=== PATIENT | male | born 1980 | race Caucasian/White ===

== ENCOUNTER 2017-09-10 09:14 | Observation (INO) | payer OTHER ==
[~2017-09-10] VITALS: Ht 165.1 cm; Wt 2.4 kg
[~2017-09-10 09:14] MED LIST: ADDERALL XR 2020 MG PO; ATIVAN1 M1 PO; ATIVAN1 MG PO; ATIVAN2 MG PO; CHLORDIAZEPOXID25 M3 PO; CLONIDINE HCL0.1 MG PO; FOLIC ACID 1 MG PO; FOLIC ACID 1MG (1 MG PO; FOLIC ACID1 M1 PO; GABAPENTIN300 M2 PO; LIBRIUM25 MG PO; MULTIVITAMIN1 TAB PO; NALTREXONE HCL50 M1 PO; NICOTINE PATCH1 EAC3 TOP; ONE DAILY MULT1 EAC2 PO; Senokot S PO; TRAZODONE HCL50 M1 PO; Theragran Vitamins PO; VITAMIN B-1100 MG PO; VITAMIN B1100 MG PO; ZOFRAN4 M2 PO
[2017-09-10 09:51] LABS: ABSOLUTE BASOPHIL COUNT 0.1 /CUMM (0.0-0.2); ABSOLUTE EOSINOPHIL COUNT 0 /CUMM (0.0-0.7); ABSOLUTE GRANULOCYTE CT 4.7 /CUMM (1.4-6.5); ABSOLUTE LYMPH COUNT 1.6 /CUMM (1.2-3.4); ABSOLUTE MONOCYTE COUNT 0.2 /CUMM (0.10-0.60); BASOPHIL % 0.8 % (0.0-2.0); EOSINOPHIL % 0.6 % (0-5); GRANULOCYTE % 70.7 % (42.2-75.2); HEMATOCRIT 45.3 % (42-52); MEAN CORPUSCULAR HGB 30.1 PG (27.0-31.0); MEAN CORPUSCULAR HGB CONC 34.2 G/DL (33.0-37.0); MEAN PLATELET VOLUME 7.1 FL (7.4-10.4); PLATELET COUNT 352 /CUMM (130-400); RBC DISTRIBUTION WIDTH 13.1 % (11.5-14.5); RED BLOOD CELL CT 5.15 /CUMM (4.70-6.10); WHITE BLOOD CELL COUNT 6.6 /CUMM (4.8-10.8)
--- NOTE | 2017-09-10 10:01 | ED GENERAL ADULT ---
History of Present Illness General Chief Complaint: ETOH/Drug Related Complaint Stated Complaint: REQ ETOH DETOX Source: patient Exam Limitations: intoxication Allergies Coded Allergies: NO KNOWN ALLERGIES (12/12/13) Reconcile Medications Folic Acid 1 MG TABLET 1 MG PO DAILY supplement Multivitamin (One Daily Multivitamin) 1 EACH TABLET 1 TAB PO DAILY supplement Naltrexone HCl 50 MG TABLET 1 TAB PO DAILY ALCOHOL USE DISORDER Nicotine (Nicotine Patch) 21 MG/24 HOUR PATCH.TD24 21 MG TOP DAILY smoking cessation Thiamine HCl (Vitamin B-1) 100 MG TABLET 100 MG PO DAILY supplement Trazodone HCl 50 MG TABLET 50 MG PO AT BEDTIME PRN sleep Triage Note: REQUESTING DETOX OFF ALCOHOL. HAS BEEN DRINKING "NON-STOP" X 3 DAYS, LAST DRINK THIS AM ([place]). REPORTS HX OF SEIZURES WHEN HE STOPS DRINKING. DENIES SI OR HI. Triage Nurses Notes Reviewed? yes Onset: Abrupt Duration: day(s): (3), changing over time, continues in ED, getting worse Timing: recent history Injury Environment: home Severity: moderate, severe No Modifying Factors: none HPI: 36-year-old male past medical history of alcohol dependence and alcohol withdrawal seizures presents requesting alcohol detox. Patient states that he has been drinking heavily for greater than 20 years. He states that he will drink in binges. He states that he was clean for several months until 3 days ago when he started drinking again. He states that he usually drinks whiskey or vodka and will drink "the entire bottle". He denies any drug use. No suicidal or homicidal ideation. He does report that he has been hospitalized for alcohol detox in the past. He denies any chest pain, shortness of breath, lower extremity edema, back pain, vomiting or any other symptoms. He does not take any medications. His last drink was before coming in he drank an entire bottle of whiskey. (Rodrigo Guerra) Vital Signs & Intake/Output Vital Signs & Intake/Output Vital Signs Date Time Temp Pulse Resp B/P B/P Pulse O2 O2 Flow FiO2 Mean Ox Delivery Rate 09/11 0005 98.3 76 20 148/84 97 Room Air 09/10 2157 97.6 67 20 129/67 97 Room Air 09/10 1915 98.7 76 20 131/65 96 09/10 1620 97.6 83 18 132/69 99 Room Air 09/10 1428 97.5 88 20 134/79 97 09/10 1210 97.0 67 20 114/57 96 09/10 1119 98 Room Air 09/10 0924 95.0 86 18 139/79 95 Room Air ED Intake and Output 09/11 0000 09/10 1200 Intake Total 480 0 Output Total Balance 480 0 Intake, Oral 480 0 Patient 5 lb 6 oz Weight Weight Reported by Patient Measurement Method (Breanna NAIDU,Niya) Past History Travel History Traveled to [place] past 21 day No Medical History Any Pertinent Medical History? see below for history Neurological: SEIZURES EENT: NONE Cardiovascular: NONE Respiratory: NONE Gastrointestinal: NONE Hepatic: NONE Renal: NONE Musculoskeletal: NONE Psychiatric: alcohol dependence, anxiety Endocrine: NONE Blood Disorders: NONE Cancer(s): NONE History of MRSA: No History of VRE: No History of CDIFF: No Influenza Vaccine: 06/26/17 Surgical History Surgical History: non-contributory Psychosocial History Who do you live with Patient/Self Services at Home None What is your primary language Romanian Tobacco Use: Current Daily Use Daily Tobacco Use Amount/Type: => 5 Cigarettes daily ETOH Use: alcoholic Illicit Drug Use: denies illicit drug use Family History Family History, If Any: MOTHER FH: thyroid cancer Hx Contributory? No (Rodrigo Guerra) Review of Systems Review of Systems Constitutional: Reports: no symptoms. EENTM: Reports: no symptoms. Respiratory: Reports: no symptoms. Cardiovascular: Reports: no symptoms. GI: Reports: no symptoms. Genitourinary: Reports: no symptoms. Musculoskeletal: Reports: no symptoms. Skin: Reports: no symptoms. Neurological/Psychological: Reports: see HPI, anxiety. Hematologic/Endocrine: Reports: no symptoms. Immunologic/Allergic: Reports: no symptoms. All Other Systems: Reviewed and Negative (Rodrigo Guerra) Physical Exam Physical Exam General Appearance: well developed/nourished, no apparent distress, alert, awake , anxious Head: atraumatic, normal appearance Eyes: Bilateral: normal appearance, PERRL, EOMI. Ears, Nose, Throat: normal pharynx, normal ENT inspection, hearing grossly normal Neck: normal inspection, supple, full range of motion Respiratory: normal breath sounds, chest non-tender, no respiratory distress, lungs clear Cardiovascular: regular rate/rhythm, normal peripheral pulses Peripheral Pulses: 2+ radial (R), 2+ radial (L) Gastrointestinal: normal bowel sounds, soft, non-tender, no organomegaly Back: normal inspection, normal range of motion Extremities: normal inspection, normal range of motion, no edema Neurologic/Psych: no motor/sensory deficits, awake, alert, oriented x 3, normal gait Skin: intact, normal color, warm/dry Core Measures ACS in differential dx? No CVA/TIA Diagnosis: No Sepsis Present: No Sepsis Focused Exam Completed? No (Rodrigo Guerra) Progress Differential Diagnoses I considered the following diagnoses in my evaluation of the patient: [Alcohol intoxication, alcohol withdrawal, drug withdrawal, electrolyte abnormality] Initial ED EKG: normal sinus rhythm, no ST T wave changes, LAD, CONSIFER LAFB Hand-Off Endorsed To: Erasto Shannon MD Endorsed Time: 2007 Pending: other (danay) (Rodrigo Guerra) Plan of Care: Orders Procedure Date/time Status Discharge Patient 09/11 0015 Active Regular Diet 09/[address] in observation 09/10 1640 Active ED Holding Orders 09/10 1640 Active Patient Data 09/10 1640 Active Vital Signs 09/10 1640 Active Code Status 09/10 1640 Active CIWA 09/10 1115 Active Intake & Output 09/10 0951 Active URINE DRUG SCREEN FOR ER ONLY 09/10 930 Complete URINALYSIS 09/10 930 Complete MAGNESIUM 09/10 930 Complete ETHANOL 09/10 930 Complete COMPREHENSIVE METABOLIC PANEL 09/10 930 Complete CBC WITHOUT DIFFERENTIAL 09/10 930 Complete EKG 09/10 0828 Active Laboratory Tests 09/10/17 1145: Urine Opiates Screen < 100.00, Methadone Screen < 40, Barbiturate Screen < 60, Ur Phencyclidine Scrn < 6.00, Amphetamines Screen < 100, U Benzodiazepines Scrn < 85, Urine Cocaine Screen < 50, Urine Cannabis Screen < 5.00, Urine Color YEL, Urine Clarity CLEAR, Urine pH 7.0, Ur Specific [place] 1.015, Urine Protein NEG, Urine Ketones NEG, Urine Nitrite NEG, Urine Bilirubin NEG, Urine Urobilinogen 0.2, Ur Leukocyte Esterase NEG, Ur Microscopic EXAM NOT REQUIRED, Urine Hemoglobin NEG, Urine Glucose NEG 09/10/17 0938: Anion Gap 14, Estimated GFR > 60, BUN/Creatinine Ratio 16.3, Glucose 95, Calcium 9.0, Magnesium 1.9, Total Bilirubin 0.3, AST 43, ALT 42, Alkaline Phosphatase 69 , Total Protein 7.4, Albumin 4.6, Globulin 2.8, Albumin/Globulin Ratio 1.6, CBC w Diff NO MAN DIFF REQ, RBC 5.15, MCV 88.0, MCH 30.1, MCHC 34.2, RDW 13.1, MPV 7.1 L, Gran % 70.7, Lymphocytes % 24.3, Monocytes % 3.6, Eosinophils % 0.6, Basophils % 0.8, Absolute Granulocytes 4.7, Absolute Lymphocytes 1.6, Absolute Monocytes 0.2, Absolute Eosinophils 0, Absolute Basophils 0.1, Serum Alcohol 355.0 Patient seen and evaluated. He is requesting alcohol detox. He currently is intoxicated. He is been drinking for the past 3 days and was clean for several months before that. Just a history of withdrawal seizures. We'll check basic labs including magnesium and EKG patient will then be monitored in the emergency department with CIWA exams. Patient has been resting comfortably. His only evidence of withdrawal has been anxiety. Patient will be made ED hours for continued evaluation and monitoring. All blood work is within normal limits. pt signed out to dr shannon pending ciwa exams and reeval. (Rodrigo Guerra) (Niya Carlos MD) Differential Diagnoses I considered the following diagnoses in my evaluation of the patient: Comments: Declines assistance for detox (Erasto Shannon MD) Departure Departure Condition: Stable Clinical Impression Primary Impression: Alcohol intoxication Qualifiers: Complication of substance-induced condition: uncomplicated Qualified Code: F10.920 - Alcohol use, unspecified with intoxication, uncomplicated Referrals: Unknown (PCP/Family) (Rodrigo Guerra) PA/[facility] Co-Sign Statement Statement: ED Attending supervision documentation- [] I saw and evaluated the patient. I have also reviewed all the pertinent lab results and diagnostic results. I agree with the findings and the plan of care as documented in the PA's/[facility] [employer]NER's documentation. [X] I have reviewed the ED Record and agree with the PA's/[facility] [employer]'s documentation. [] Additions or exceptions (if any) to the PAs/[facility] THINNER's note and plan are summarized below: [] (Breanna NAIDU,Niya) Departure Time of Disposition: 18 Disposition: HOME OR SELF CARE Departure Forms: DETOX FACILITIES LIST General Discharge Information PA/[facility] [employer] Co-Sign Statement Statement: ED Attending supervision documentation- x I saw and evaluated the patient. I have also reviewed all the pertinent lab results and diagnostic results. I agree with the findings and the plan of care as documented in the PA's/[facility] [employer]'s documentation. [] I have reviewed the ED Record and agree with the PA's/[facility] THINNER's documentation. [] Additions or exceptions (if any) to the PAs/[facility] THINNER's note and plan are summarized below: [] (Mirtha NAIDU,Erasto) Critical Care Note Critical Care Note Critical Care Time: non-applicable (Rodrigo Guerra) ED Attending Observation Initial Observation Note: I have seen and personally examined TAWANNA ESCAMILLA on 09/10/17 at 1639. I agree with the current emergency department documentation. The disposition (admission or discharge) is uncertain at this time, he needs a period of observation for the following reason(s): [CIWA MONITORING, FOLLOW FOR SOBRIETY, SIGNS OF WITHDRAWAL, UNCLEAR IF PATIENT WILL NEED HOSPITALIZATION, SITTER AT BEDSIDE] The ED Nurse caring for this patient has been personally informed as to what the patient is being observed for. (Breanna NAIDU,Niya) Initial Observation Note: I have seen and personally examined TAWANNA ESCAMILLA on 09/11/17 at 0019. I agree with the current emergency department documentation. The disposition (admission or discharge) is uncertain at this time, he needs a period of observation for the following reason(s): The ED Nurse caring for this patient has been personally informed as to what the patient is being observed for. Observation Re-Evaluation: I have reevaluated TAWANNA ESCAMILLA on 09/11/17 at 0018. The physical findings that support the continued need to observe this patient include . Observation Discharge: I have reevaluated TAWANNA ESCAMILLA on 09/11/17 at 0019. The patient is: (x): Stable for discharge (): To be admitted to Nursing Floor (): To be placed in Observation on Nursing Floor (): For transfer to other facility The patient was being observed for alcohol intoxication As a result of that observation, I have determined safe for discharge. (Mirtha NAIDU,Erasto)
[2017-09-11 00:10] VITALS: BP 148/84
[2017-09-12] MEDS ORDERED: DEXTROAMP-AMPHE10 M1 PO (20:08)
[2017-09-12] MEDS ORDERED: NALTREXONE HCL50 M1 PO (20:08)
[2017-09-12] MEDS ORDERED: TRAZODONE HCL50 M1 PO (20:09)
[2017-09-12] MEDS ORDERED: VITAMIN B-1100 MG PO (20:09)
[2017-09-12] MEDS ORDERED: GABAPENTIN400 M2 PO (20:13)
== END 2017-09-11 00:12 ==
LOC: ERH 09:14 → ERHI 16:45
PROVIDERS: Physician Assistant Medical
DX: F10.229 Alcohol dependence with intoxication, unspecified (principal); R56.9 Unspecified convulsions; F41.9 Anxiety disorder, unspecified; F90.9 Attention-deficit hyperactivity disorder, unspecified type; F32.9 Major depressive disorder, single episode, unspecified; F17.200 Nicotine dependence, unspecified, uncomplicated
CPT/HCPCS: ERO; 80307; 81003; 93005; 93010; G0378; G0480

== ENCOUNTER 2017-09-12 11:51 | Inpatient (IN) | payer OTHER ==
[~2017-09-12] VITALS: Ht 165.1 cm; Wt 72.6 kg
--- NOTE | 2017-09-12 12:54 | ED GENERAL ADULT ---
History of Present Illness General Chief Complaint: ETOH/Drug Related Complaint Stated Complaint: NEEDS DETOX FROM ETOH SEEN WED FOR SAME Source: patient Exam Limitations: no limitations Vital Signs & Intake/Output Vital Signs & Intake/Output Vital Signs Date Time Temp Pulse Resp B/P B/P Pulse O2 O2 Flow FiO2 Mean Ox Delivery Rate 09/12 2039 98.2 93 18 127/71 09/12 2040 98.2 93 18 127/71 98 Room Air 09/12 1805 98.8 88 20 117/65 96 Room Air 09/12 1803 98.8 88 20 117/65 09/12 1609 97.5 97 19 131/71 100 Room Air 09/12 1600 98.2 88 18 115/71 09/12 1343 Room Air Room Air 09/12 1254 96.4 105 20 144/74 99 Room Air Allergies Coded Allergies: NO KNOWN ALLERGIES (12/12/13) Triage Note: REQUESTING DETOX OFF ALCOHOL, SEEN HERE ON 09/10 FOR SAME. STATES HE WENT HOME AND DRANK. [place] THIS AM, DNEIES OTHER Triage Nurses Notes Reviewed? yes Onset: Abrupt Duration: day(s): Timing: recent history HPI: 09/12/17 2 PM 36-year-old male presents emergency department requesting alcohol detox. He says last drink was earlier today. He denies abdominal pain or other complaints. He admits to depression but denies suicidal ideation. He declines any interest speaking with crisis; he wants alcohol detox. He does say he's had withdrawal seizures including one within the last year. (Jose Walker DO) Reconcile Medications Dextroamphetamine/Amphetamine (Dextroamp-Amphet ER 10 MG Cap) 10 MG CAP.ER.24H 1 CAP PO QAM PRN ADD/ADHD (Reported) Gabapentin (Unknown Strength) CAPSULE (Unknown Dose) PO AD MENTAL HEALTH ( Reported) Naltrexone HCl 50 MG TABLET 1 TAB PO DAILY MENTAL HEALTH (Reported) Thiamine HCl (Vitamin B-1) 100 MG TABLET 1 TAB PO DAILY SUPPLEMENT (Reported) Trazodone HCl 50 MG TABLET 1 TAB PO QPM PRN SLEEP (Reported) (Eboni NAIDU,Abad Olivo) Past History Medical History Any Pertinent Medical History? see below for history Neurological: SEIZURES EENT: NONE Cardiovascular: NONE Respiratory: NONE Gastrointestinal: NONE Hepatic: NONE Renal: NONE Musculoskeletal: NONE Psychiatric: alcohol dependence, anxiety Endocrine: NONE Blood Disorders: NONE Cancer(s): NONE History of MRSA: No History of VRE: No History of CDIFF: No Surgical History Surgical History: non-contributory Psychosocial History Who do you live with Patient/Self Services at Home None What is your primary language Eritrean Family History Family History, If Any: MOTHER FH: thyroid cancer Hx Contributory? No (Jose Walker DO) Review of Systems Review of Systems Constitutional: Denies: fever. EENTM: Reports: no symptoms. Respiratory: Reports: no symptoms. Cardiovascular: Reports: no symptoms. GI: Reports: no symptoms. Genitourinary: Reports: no symptoms. Musculoskeletal: Reports: no symptoms. Skin: Reports: no symptoms. Neurological/Psychological: Reports: other (intoxicated). Hematologic/Endocrine: Reports: no symptoms. Immunologic/Allergic: Reports: no symptoms. (Jose Walker DO) Physical Exam Physical Exam General Appearance: alert, awake, anxious Head: atraumatic, normal appearance Eyes: Bilateral: normal appearance, PERRL, EOMI. Ears, Nose, Throat: normal pharynx, normal ENT inspection Neck: normal inspection, supple, full range of motion Respiratory: normal breath sounds, chest non-tender, no respiratory distress Cardiovascular: regular rate/rhythm Peripheral Pulses: 4+ radial (R), 4+ radial (L) Gastrointestinal: soft, non-tender Back: normal range of motion Extremities: normal inspection, normal range of motion Neurologic/Psych: awake, alert, oriented x 3, intoxicated Skin: intact, normal color, warm/dry Core Measures ACS in differential dx? No CVA/TIA Diagnosis: No Sepsis Present: No Sepsis Focused Exam Completed? No (Jose Walker DO) Progress Differential Diagnoses I considered the following diagnoses in my evaluation of the patient: [Alcohol withdrawal, alcohol intoxication] Plan of Care: Orders Procedure Date/time Status Regular Diet 09/13 B Active PHOSPHORUS 09/13 599 Active MAGNESIUM 09/13 599 Active BASIC ELECTROLYTES PLUS BUN&CR 09/13 599 Active URINALYSIS 09/12 2199 Active Pathway - chart 09/12 2104 Active Code Status 09/12 2104 Active Patient Data 09/12 2055 Active Admit to inpatient 09/12 2009 Active CIWA 09/12 140 Active URINE DRUG SCREEN FOR ER ONLY 02/09 1402 Complete ETHANOL 02/09 1402 Complete COMPREHENSIVE METABOLIC PANEL 09/12 1402 Complete CBC WITHOUT DIFFERENTIAL 09/12 1402 Complete CASE MANAGEMENT CONSULT 09/12 1402 Active URINE DRUG SCREEN FOR ER ONLY 09/12 1242 Complete URINALYSIS 09/12 1242 Complete House Staff 09/12 UNK Active VTE Mechanical Prophylaxis 09/12 UNK Active Intake & Output 09/12 UNK Active Activity/Ambulation 09/12 UNK Active EKG 09/12 UNK Active SOCIAL WORK CONSULT 09/12 UNK Active PSYCHIATRIC CONSULT 09/12 UNK Active Current Medications Sig/Tea Start time Last Medication Dose Stop Time Status Admin Folic Acid 1 MG DAILY 09/13 1000 UNVr (Folic Acid) Thiamine HCl 100 MG DAILY 09/13 1000 UNVr (Vitamin B1) Multivitamins 1 TAB DAILY 09/12 2104 UNVr 09/12 (Theragran Vitamins) 211 Lorazepam See Dose Q1P PRN 09/12 2100 UNVr (Ativan) Insts (1) Lorazepam 2 MG Q6H 09/12 2100 UNVr 09/12 (Ativan) 2116 Sodium Chloride 1,000 ML 09/12 1900 CAN (Normal Saline 0.9%) Dose Instructions: (1)Lorazepam (Ativan): See admin criteria Laboratory Tests 09/12/17 1650: Urine Opiates Screen < 100.00, Methadone Screen < 40, Barbiturate Screen < 60, Ur Phencyclidine Scrn < 6.00, Amphetamines Screen < 100, U Benzodiazepines Scrn < 85, Urine Cocaine Screen < 50, Urine Cannabis Screen < 5.00 09/12/17 1539: Anion Gap 17 H, Estimated GFR > 60, BUN/Creatinine Ratio 11.3, Glucose 95, Calcium 9.2, Total Bilirubin 0.3, AST 39, ALT 42, Alkaline Phosphatase 68, Total Protein 7.5, Albumin 4.8, Globulin 2.7, Albumin/Globulin Ratio 1.8, CBC w Diff NO MAN DIFF REQ, RBC 5.72, MCV 88.3, MCH 29.3, MCHC 33.1, RDW 13.4, MPV 7.0 L, Gran % 54.4, Lymphocytes % 37.4, Monocytes % 6.8, Eosinophils % 0.7, Basophils % 0.7, Absolute Granulocytes 2.6, Absolute Lymphocytes 1.8, Absolute Monocytes 0.3 , Absolute Eosinophils 0, Absolute Basophils 0, Serum Alcohol 298.0 09/12/17 1244: Urine Opiates Screen < 100.00, Methadone Screen < 40, Barbiturate Screen < 60, Ur Phencyclidine Scrn < 6.00, Amphetamines Screen 113, U Benzodiazepines Scrn < 85, Urine Cocaine Screen < 50, Urine Cannabis Screen < 5.00, Urine Color YEL, Urine Clarity CLEAR, Urine pH 6.0, Ur Specific [address] 1.020, Urine Protein 30 H, Urine Ketones NEG, Urine Nitrite NEG, Urine Bilirubin NEG, Urine Urobilinogen 0.2, Ur Leukocyte Esterase NEG, Ur Microscopic SEDIMENT EXAMINED, Urine RBC RARE , Urine WBC RARE, Urine Crystals 3+ [place] OX H, Urine Bacteria RARE H, Hyaline Casts 1-3 H, Granular Casts 1-3 H, Urine Mucus MANY H, Urine Hemoglobin NEG, Urine Glucose 250 H Initial ED EKG: none (Jose Walker DO) Initial ED EKG: l anterior fasicular block. nsr (Eboni NAIDU,Abad Olivo) Departure Departure Disposition: STILL A PATIENT Condition: Stable Clinical Impression Primary Impression: Alcohol intoxication Secondary Impressions: Alcohol dependence with withdrawal Referrals: Unknown (PCP/Family) Departure Forms: Customer Survey General Discharge Information Comments 09/12/17 6:40 pm The patient has his CIWA score of 9. His alcohol level was 298. He has a history of alcohol withdrawal seizures within the last year He is pending case management approval for inpatient alcohol detox. The patient was signed out to Dr. Lyn at 7 PM. (Jose Walker DO) Admission Note [facility] Documentation of Exam: Documentation of any treatments & extenuating circumstances including Concerns Regarding Discharge (functional status, medication knowledge or non-compliance, living conditions, etc.) that warrant an admission rather than observation: pt cleared for admission... pt with history of seizures/delerium tremens <1 year ago. merits medical admission for etoh detox. (Eboni NAIDU,Abad Olivo) Critical Care Note Critical Care Note Critical Care Time: 30-74 min (Jose Walker DO)
[2017-09-12 15:44] LABS: ABSOLUTE BASOPHIL COUNT 0 /CUMM (0.0-0.2); ABSOLUTE EOSINOPHIL COUNT 0 /CUMM (0.0-0.7); ABSOLUTE GRANULOCYTE CT 2.6 /CUMM (1.4-6.5); ABSOLUTE LYMPH COUNT 1.8 /CUMM (1.2-3.4); ABSOLUTE MONOCYTE COUNT 0.3 /CUMM (0.10-0.60); BASOPHIL % 0.7 % (0.0-2.0); EOSINOPHIL % 0.7 % (0-5); GRANULOCYTE % 54.4 % (42.2-75.2); MEAN CORPUSCULAR HGB 29.3 PG (27.0-31.0); MEAN CORPUSCULAR HGB CONC 33.1 G/DL (33.0-37.0); MEAN CORPUSCULAR VOLUME 88.3 FL (80.0-94.0); PLATELET COUNT 375 /CUMM (130-400); RBC DISTRIBUTION WIDTH 13.4 % (11.5-14.5); RED BLOOD CELL CT 5.72 /CUMM (4.70-6.10); WHITE BLOOD CELL COUNT 4.8 /CUMM (4.8-10.8)
[2017-09-12 15:50] LABS: HEMATOCRIT 50.5 % (42-52)
[2017-09-12 16:00] VITALS: BP 115/71
[2017-09-12 18:03] VITALS: BP 117/65
[2017-09-12] MEDS ORDERED: NALTREXONE HCL50 M1 PO (20:08)
[2017-09-12] MEDS ORDERED: DEXTROAMP-AMPHE10 M1 PO (20:08)
[2017-09-12] MEDS ORDERED: TRAZODONE HCL50 M1 PO (20:09)
[2017-09-12] MEDS ORDERED: VITAMIN B-1100 MG PO (20:09)
[2017-09-12] MEDS ORDERED: GABAPENTIN400 M2 PO (20:13)
[2017-09-12 20:40] VITALS: BP 127/71
--- NOTE | 2017-09-12 21:11 | History & Physical ---
Charu Spring MD 09/12/172109: General Information and HPI Statement: I have seen and personally examined TAWANNA ESCAMILLA and documented this H&P. The patient is a 36 year old M who presented with a patient stated chief complaint of alcohol intoxication and impending withdrawal Source of Information: patient, family, old records Exam Limitations: no limitations History of Present Illness: 36 year old male with a PMH significant for seizures, alcohol dependence, anxiety, ADHD, current smoker comes to the [facility] ED for alcohol intoxication and impending detox. He was last here two days ago but was treated in the ED and discharged. Today he comes in requesting detox. He is accompanied by his sister who contributes to the history. Apparently the patient has been drivinking daily for 15 days and had been sober before that for several months. He states that he has been drinking one bottle of whiskey a day. The sister claims he has been drinking three bottles of whiskey a day. The patient does admit that between the time of his trip to the ER and today, he drank "three large bottles of whiskey" that he had taken from his neighbor's house. As per the patient and sister, he has a history of seizures related to alcohol withdrawal. Patient denies suicidal or homicidial ideation, hallucinations. According to the ED staff, the patient did not answer if he was suicidal when asked but did admit to being depressed. Patient denies headache, fever, abdominal pain, change in bowel or urinary habits, nausea or vomiting, dizziness. The patient was last admitted to the hospital back in June 2017 for detox and it was noted there that he had a history significant for suicidal ideation. Before that, he was admitted to [facility] with the same complaints. He was tapered on ativan and instructed to follow up with IOP on discharge. However he now states that the provider he spoke with there was not helpful so he did not continue to go there. The patient was placed on trazadone for sleep during his last admission here but has not taken it for "some time". The patient is also on Adderal for ADHD but he reports not taking that either. The only medication he takes is naltrexone 50mg daily. Patient has no surgical history, family history significant for mother with thyroid cancer. He has smoked for 17 years 1PPD. He denies drug use other than marijuana. 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 He is single. Allergies/Medications Allergies: Coded Allergies: NO KNOWN ALLERGIES (12/12/13) Home Med list Dextroamphetamine/Amphetamine (Dextroamp-Amphet ER 10 MG Cap) 10 MG CAP.ER.24H 1 CAP PO QAM PRN ADD/ADHD (Reported) Gabapentin (Unknown Strength) CAPSULE (Unknown Dose) PO AD MENTAL HEALTH ( Reported) Naltrexone HCl 50 MG TABLET 1 TAB PO DAILY MENTAL HEALTH (Reported) Thiamine HCl (Vitamin B-1) 100 MG TABLET 1 TAB PO DAILY SUPPLEMENT (Reported) Trazodone HCl 50 MG TABLET 1 TAB PO QPM PRN SLEEP (Reported) Compliance With Home Meds: POOR Past History Travel History Traveled to [place] past 21 day No Medical History Neurological: SEIZURES EENT: NONE Cardiovascular: NONE Respiratory: NONE Gastrointestinal: NONE Hepatic: NONE Renal: NONE Musculoskeletal: NONE Psychiatric: alcohol dependence, anxiety Endocrine: NONE Blood Disorders: NONE Cancer(s): NONE History of MRSA: No History of VRE: No History of CDIFF: No Surgical History Surgical History: non-contributory Past Family/Social History Family History Relations & Conditions if any MOTHER FH: thyroid cancer Psychosocial History Services at Home: None ETOH Use: alcoholic Review of Systems Review of Systems Constitutional: Reports: no symptoms. EENTM: Reports: no symptoms. Cardiovascular: Reports: no symptoms. Respiratory: Reports: no symptoms. GI: Reports: no symptoms. Genitourinary: Reports: no symptoms. Musculoskeletal: Reports: no symptoms. Skin: Reports: no symptoms. Neurological/Psychological: Reports: tremors. Hematologic/Endocrine: Reports: no symptoms. Immunologic/Allergic: Reports: no symptoms. All Other Systems: Reviewed and Negative Exam & Diagnostic Data Last 24 Hrs of Vital Signs/I&O Vital Signs Date Time Temp Pulse Resp B/P B/P Pulse O2 O2 Flow FiO2 Mean Ox Delivery Rate 09/12 2230 98.7 92 19 132/72 09/12 2229 98.7 92 19 132/72 99 Room Air 09/12 2039 98.2 93 18 127/71 09/12 2039 98.2 93 18 127/71 98 Room Air 09/12 1805 98.8 88 20 117/65 96 Room Air 09/12 1803 98.8 88 20 117/65 09/12 1609 97.5 97 19 131/71 100 Room Air 09/12 1600 98.2 88 18 115/71 02/09 1343 Room Air Room Air 09/12 1254 96.4 105 20 144/74 99 Room Air Intake & Output 09/12 1600 09/12 0800 09/12 0000 Intake Total Output Total Balance Patient 160 lb Weight Weight Reported by Patient Measurement Method Physical Exam General Appearance Alert, Oriented X3, Cooperative, No Acute Distress Skin No Rashes, No Breakdown, No Significant Lesion Skin Temp/Moisture Exam: Warm/Dry Sepsis Skin Exam (color): Normal for Ethnicity HEENT Atraumatic, PERRLA, EOMI, Mucous Membr. moist/pink Cardiovascular Regular Rate, Normal S1, Normal S2, No Murmurs Lungs Clear to Auscultation, Normal Air Movement Abdomen Normal Bowel Sounds, Soft, No Tenderness, No Hepatospenomegaly, No Masses Neurological tremor bilaterally on outstretched hands. Extremities No Clubbing, No Cyanosis, No Edema, Normal Pulses, No Tenderness/ Swelling Last 24 Hrs of Labs/David: Laboratory Tests 09/12/17 1650: Urine Opiates Screen < 100.00, Methadone Screen < 40, Barbiturate Screen < 60, Ur Phencyclidine Scrn < 6.00, Amphetamines Screen < 100, U Benzodiazepines Scrn < 85, Urine Cocaine Screen < 50, Urine Cannabis Screen < 5.00 09/12/17 1539: Anion Gap 17 H, Estimated GFR > 60, BUN/Creatinine Ratio 11.3, Glucose 95, Calcium 9.2, Total Bilirubin 0.3, AST 39, ALT 42, Alkaline Phosphatase 68, Total Protein 7.5, Albumin 4.8, Globulin 2.7, Albumin/Globulin Ratio 1.8, CBC w Diff NO MAN DIFF REQ, RBC 5.72, MCV 88.3, MCH 29.3, MCHC 33.1, RDW 13.4, MPV 7.0 L, Gran % 54.4, Lymphocytes % 37.4, Monocytes % 6.8, Eosinophils % 0.7, Basophils % 0.7, Absolute Granulocytes 2.6, Absolute Lymphocytes 1.8, Absolute Monocytes 0.3 , Absolute Eosinophils 0, Absolute Basophils 0, Serum Alcohol 298.0 09/12/17 1244: Urine Opiates Screen < 100.00, Methadone Screen < 40, Barbiturate Screen < 60, Ur Phencyclidine Scrn < 6.00, Amphetamines Screen 113, U Benzodiazepines Scrn < 85, Urine Cocaine Screen < 50, Urine Cannabis Screen < 5.00, Urine Color YEL, Urine Clarity CLEAR, Urine pH 6.0, Ur Specific [place] 1.020, Urine Protein 30 H, Urine Ketones NEG, Urine Nitrite NEG, Urine Bilirubin NEG, Urine Urobilinogen 0.2, Ur Leukocyte Esterase NEG, Ur Microscopic SEDIMENT EXAMINED, Urine RBC RARE , Urine WBC RARE, Urine Crystals 3+ CA OX H, Urine Bacteria RARE H, Hyaline Casts 1-3 H, Granular Casts 1-3 H, Urine Mucus MANY H, Urine Hemoglobin NEG, Urine Glucose 250 H Assessment/Plan Assessment: 36 year old male with a PMH significant for grand mal seizures secondary to alcohol withdrawal, anxiety, ADHD, current smoker comes to the [facility] ED for alcohol intoxication and impending detox. The patient has been drinking daily for 15 days and had been sober before that for several months. Patient failed IOP treatment as he did not attend. He did attempt alcoholics anonymous for some time. He denies SI, HI, hallucinations. Physical exam is positive for bounding pulses and tremor. Vitals showed tachycardia. His CIWA score in the ED is 10 for anxiety, tremors, nausea. Alcohol level found to be 298. Utox is negative for all other drugs of abuse. Vital signs are normal. Patient was given (3) 2 mg doses of ativan and (1) 1 mg dose in the ED for symptoms and signs of withdrawal. Plan #alcohol withdrawal Patient is placed on ativan per ciwa protocol and standing dose of 2mg q6h Folate Thiamine 100mg Multivitamin Psychiatry consult Social work for disposition planning: [place] vs [facility] Detox. Continue naltrexone 50mg daily Check phos and mag levels in addition to K and replete as needed #smoking cessation counseled patient nicotine patch 14mg Full code ALPS Regular diet As Ranked By This Provider Problem List: 1. Alcohol dependence with withdrawal 2. Anxiety 3. Depression Core Measures/Misc (04/20) Acute Coronary Syndrome ACS Diagnosis: No Congestive Heart Failure Congestive Heart Failure Diagnosis No Cerebrovascular Accident CVA/TIA Diagnosis: No VTE (View Protocol) VTE Risk Factors Smoker No Mechanical VTE Prophylaxis d/t N/A MechProphylax Ordered No VTE Pharm Prophylaxis d/t NA PharmProphylax ordered Sepsis (View protocol) Sepsis Present: No Saba Díaz MD 09/12/17 2153: Resident Review Statement Resident Statement: examined this patient, discussed with internal combustion engine subassembler, agreed with internal combustion engine subassembler, discussed with family, reviewed EMR data (avail), discussed with nursing , discussed with case mgmt, reviewed images, amended to note Other Findings: Patient is a 36 YO M with PMH significant of Alcohol abuse, with h/o multiple detox attempts, alcohol related grand mal seizure once last yr and history of suicidal ideation, last admission was in june 2017 presented to [facility] requesting detoxification. He was discharged recently to [facility] but didnt attend due to inconvinient hours. Attending Alcohol annonymous and remained sober. Started drinking around 15 days ago with whiskey around reportedly 1L per day. Today he drank on 2-3 bottles and requested detox after calling his sister. Vitals at admissions did show tachycardia. Labs are unremarkable. CIWA scores around 10 for anxiety, tremors, nausea. Admit to general medicine floor Alcohol detox CIWA protocol. folate/thiamine/multivitamin. Psych and social work consult. Fall and seizure precautions fall and seizure precautions smoking cessation nicotin patch Home meds Patient currently takes only - Naltrexone 50mg daily. Previously ON and not taking - Aderral, Trazodone, gabapentine. Discharge follow up Family requested 1. [facility] [phone]. 2. [facility] (NO ADDITIONAL DETAILS ABOUT THIS FACILITY) DVT prophylaxis SC lovenox code status full code Cipriano NAIDU, [facility] 09/13/17 0611: Attending MD Review Statement Attending Statement Attending MD Statement: examined this patient, discuss w/resident/PA/TREATMENT COORDINATOR, agreed w/resident/PA/TREATMENT COORDINATOR, reviewed images, amended to note Attending Assessment/Plan: 36 yo M smoker, with h/o anxiety/ depression, ADHD, alcohol dependence, alcohol withdrawal seizure, last detox (Jun 2017) at [facility] after which patient followed up with [facility] and [facility]. He was sober until 2 weeks back when he started to drink again, binges on whiskey. Last seizure was 1 year ago. No SI or HI. He denies nausea, vomiting, abdominal pain, or diarrhea. No melena, hematemesis or BRBPR. Vitals stable, Examination unremarkable. Labs: bicarb 31, AG 17, LFTs normal. UA neg. Utox neg. Alcohol 298. EKG: sinus rhythm, LAFB, no acute changes. Assessment and plan: 1. Alcohol withdrawal 2. History of alcohol withdrawal seizure 3. Anxiety/ depression 4. Smoker - Admit to general medicine - Fall and seizure precautions - CIWA protocol, IV ativan per CIWA - PO ativan 2 mg Q6 - Banana bag x 1 - Psych and social work consult - Smoking cessation counseling, nicotine patch - Resume trazodone for insomnia - Discuss with Psych about resuming Adderall DVT ppx Lovenox. Full code.
[2017-09-12 22:31] VITALS: BP 132/72
[2017-09-13 00:11] VITALS: BP 134/82
--- NOTE | 2017-09-13 06:11 | Admission Certification ---
Admission Certification Certification Statement - As attending physician, I certify that at the time of - admission, based on clinical presentation, severity of - symptoms, need for further diagnostic testing and - therapeutic interventions, and risk of adverse outcomes - without in-hospital treatment, in my clinical assessment, - this patient requires an acute hospital stay for a minimum - of two nights or longer. I have also considered psychsocial - factors such as support system, advanced age, financial - issues, cognitive issues, and failed out-patient treatments, - past re-admission history, safety of patient, and lack of - compliance as applicable. Specific rationale supporting this admission is: Alcohol withdrawal.
[2017-09-13 06:21] VITALS: BP 132/64
--- NOTE | 2017-09-13 08:22 | PN- Housestaff ---
See Addendum Subjective Follow-up For: Alcohol detoxification Subjective: He is comfortably lying in the bed. Able to communicate. Reports he is feeling better compared to yesterday. Denies any overnight issues. Review of Systems Constitutional: Reports: see HPI (a). Comments: ROS negative accept above Objective Last 24 Hrs of Vital Signs/I&O Vital Signs Date Time Temp Pulse Resp B/P B/P Pulse O2 O2 Flow FiO2 Mean Ox Delivery Rate 09/13 0621 98.4 68 18 132/64 96 Room Air 09/13 0011 98.9 86 18 134/82 95 Room Air 09/12 2231 98.7 92 19 132/72 09/12 2230 98.7 92 19 132/72 99 Room Air 09/12 2040 98.2 93 18 127/71 09/12 2040 98.2 93 18 127/71 98 Room Air 09/12 1805 98.8 88 20 117/65 96 Room Air 09/12 1803 98.8 88 20 117/65 09/12 1609 97.5 97 19 131/71 100 Room Air 09/12 1600 98.2 88 18 115/71 09/12 1343 Room Air Room Air 09/12 1254 96.4 105 20 144/74 99 Room Air Intake & Output 09/13 1600 09/13 0800 09/13 0000 Intake Total 120 240 Output Total 1 Balance 120 239 Intake, IV 20 Intake, Oral 100 240 Output, Urine 1 Patient 72.575 kg Weight Weight Reported by Patient Measurement Method Physical Exam General Appearance: Alert, Oriented X3, Cooperative, No Acute Distress Skin: No Rashes, No Breakdown HEENT: Atraumatic, PERRLA, EOMI Neck: Supple, No JVD Cardiovascular: Normal S1, Normal S2, No Murmurs Lungs: Clear to Auscultation, Normal Air Movement Abdomen: Normal Bowel Sounds, Soft, No Tenderness Neurological: Normal Gait, Normal Speech, Strength at 5/5 X4 Ext, Normal Tone, Sensation Intact Extremities: No Clubbing, No Cyanosis, No Edema Current Medications: Current Medications Sig/Tea Start time Last Medication Dose Route Stop Time Status Admin Folic Acid 1 MG DAILY 09/13 1000 AC 09/13 PO 0933 Influenza Virus 0.5 ML ONCE ONE 09/13 114 DC 09/13 Vaccine IM 09/13 115 0937 Lorazepam 2 MG Q6H 09/13 1200 AC PO Lorazepam 0 .STK-MED ONE 09/12 2114 DC PO Lorazepam See Dose Q1P PRN 09/12 2100 AC 09/13 Insts (1) IV 0006 Lorazepam 2 MG Q6H 09/12 2100 DC 09/13 PO 0641 Lorazepam 0 .STK-MED ONE 09/12 1915 DC .ROUTE Lorazepam 0 .STK-MED ONE 09/12 1914 DC PO Lorazepam 2 MG ONCE ONE 09/120 DC 09/12 PO 09/12 190 191 Lorazepam 2 MG STAT STA 09/12 1848 DC 09/12 IV 09/12 Multivitamins 0 .STK-MED ONE 09/12 2115 DC PO Multivitamins 1 TAB DAILY 09/12 210 AC 09/13 PO 0933 Nicotine 14 MG DAILY 09/13 1000 AC 09/12 TOP 2312 Nicotine 0 .STK-MED ONE 09/12 2314 DC TOP Sodium Chloride 1,000 ML BOLUS ONE 09/12 194 DC 09/12 IV 09/12 2043 1940 Sodium Chloride 1,000 ML 09/12 1899 CAN IV Thiamine HCl 100 MG DAILY 09/13 1000 AC 09/13 PO 0933 Dose Instructions: (1)Lorazepam: See admin criteria Last 24 Hrs of Lab/David Results Last 24 Hrs of Labs/Mics: Laboratory Tests 09/13/17 0755: Anion Gap 9, Estimated GFR > 60, BUN/Creatinine Ratio 18.6, Phosphorus 3.1, Magnesium 1.4 L 09/12/17 1650: Urine Opiates Screen < 100.00, Methadone Screen < 40, Barbiturate Screen < 60, Ur Phencyclidine Scrn < 6.00, Amphetamines Screen < 100, U Benzodiazepines Scrn < 85, Urine Cocaine Screen < 50, Urine Cannabis Screen < 5.00 09/12/17 1539: Anion Gap 17 H, Estimated GFR > 60, BUN/Creatinine Ratio 11.3, Glucose 95, Calcium 9.2, Total Bilirubin 0.3, AST 39, ALT 42, Alkaline Phosphatase 68, Total Protein 7.5, Albumin 4.8, Globulin 2.7, Albumin/Globulin Ratio 1.8, CBC w Diff NO MAN DIFF REQ, RBC 5.72, MCV 88.3, MCH 29.3, MCHC 33.1, RDW 13.4, MPV 7.0 L, Gran % 54.4, Lymphocytes % 37.4, Monocytes % 6.8, Eosinophils % 0.7, Basophils % 0.7, Absolute Granulocytes 2.6, Absolute Lymphocytes 1.8, Absolute Monocytes 0.3 , Absolute Eosinophils 0, Absolute Basophils 0, Hepatitis A IgM Ab NONREACTIVE, Hep Bs Antigen NONREACTIVE, Hep B Core IgM Ab Conf NONREACTIVE, Hepatitis C Antibody NONREACTIVE, Serum Alcohol 298.0 09/12/17 1244: Urine Opiates Screen < 100.00, Methadone Screen < 40, Barbiturate Screen < 60, Ur Phencyclidine Scrn < 6.00, Amphetamines Screen 113, U Benzodiazepines Scrn < 85, Urine Cocaine Screen < 50, Urine Cannabis Screen < 5.00, Urine Color YEL, Urine Clarity CLEAR, Urine pH 6.0, Ur Specific [place] 1.020, Urine Protein 30 H, Urine Ketones NEG, Urine Nitrite NEG, Urine Bilirubin NEG, Urine Urobilinogen 0.2, Ur Leukocyte Esterase NEG, Ur Microscopic SEDIMENT EXAMINED, Urine RBC RARE , Urine WBC RARE, Urine Crystals 3+ CA OX H, Urine Bacteria RARE H, Hyaline Casts 1-3 H, Granular Casts 1-3 H, Urine Mucus MANY H, Urine Hemoglobin NEG, Urine Glucose 250 H Assessment/Plan Assessment: Patient is a 36 YO M with PMH significant of Alcohol abuse, with h/o multiple detox attempts, alcohol related grand mal seizure once last yr and history of suicidal ideation. His last admission was in june 2017 presented to [facility] requesting detoxification. He was discharged recently to [facility] but didnt attend due to inconvinient hours. Attending Alcohol annonymous and remained sober. Started drinking around 15 days ago with whiskey around 1L reportedly per day. Today he drank on 2-3 bottles and requested detox after calling his sister. Vitals at admissions did show tachycardia. Labs are unremarkable. CIWA scores around 10 for anxiety, tremors, nausea. Admit to general medicine floor Alcohol detox Overnight CIWA scores around 0 -13. I think we can safely taper given 1.5 mg every 6 for now. folate/thiamine/multivitamin. Psych and social work consult. smoking cessation nicotin patch Discharge follow up Family requested 1. [facility] [phone]. 2. [facility] (NO ADDITIONAL DETAILS ABOUT THIS FACILITY) DVT prophylaxis SC lovenox code status Full code Problem List: 1. Alcoholism /alcohol abuse 2. Alcohol intoxication Pain Ratin Pain Location: n/a Pain Goal: Pain 4 or less Pain Plan: tylenol prn Tomorrow's Labs & Rationales: cbc bep
[2017-09-13 15:41] VITALS: BP 120/70
[2017-09-13 18:00] VITALS: BP 122/80
[2017-09-13 22:00] VITALS: BP 130/60
[2017-09-14 06:20] VITALS: BP 126/74
--- NOTE | 2017-09-14 10:33 | PN- Housestaff ---
Nnamdi NAIDU,Antoinette 09/14/17 1033: Subjective Follow-up For: Alcohol detoxification Complaints: says he feels anxious Subjective: Pt lying calmly in bed, not in acute distress. C/o of feeling anxious but others feels ok. Also c/o pain on the lat aspect of his Rt knee that has been present before he was admitted. Review of Systems Constitutional: Reports: no symptoms. Objective Last 24 Hrs of Vital Signs/I&O Vital Signs Date Time Temp Pulse Resp B/P B/P Pulse O2 O2 Flow FiO2 Mean Ox Delivery Rate 09/14 0620 98.5 63 18 126/74 99 Room Air 09/13 2200 98.9 66 19 130/60 98 Room Air 09/13 1800 98.1 68 19 122/80 98 Room Air 09/13 1541 98.0 80 18 120/70 97 Physical Exam General Appearance: Alert, Oriented X3, Cooperative, No Acute Distress HEENT: Mucous Membr. moist/pink Cardiovascular: Regular Rate, Normal S1, Normal S2 Lungs: Clear to Auscultation, Normal Air Movement Abdomen: Normal Bowel Sounds, Soft, No Tenderness Extremities: No Edema, Normal Pulses Current Medications: Current Medications Sig/Tea Start time Last Medication Dose Route Stop Time Status Admin Folic Acid 1 MG DAILY 09/13 1000 AC 09/14 PO 0905 Lorazepam 1 MG Q6H 09/14 1200 AC 09/14 PO 1233 Lorazepam 2 MG Q6H 09/13 1200 DC 09/14 PO 0544 Lorazepam See Dose Q1P PRN 09/12 2100 AC 09/14 Insts (1) IV 1412 Multivitamins 1 TAB DAILY 09/12 2105 AC 09/14 PO 0905 Nicotine 14 MG DAILY 09/13 1000 AC 09/14 TOP 0905 Thiamine HCl 100 MG DAILY 09/13 1000 AC 09/14 PO 0905 Trazodone HCl 50 MG ONCE ONE 09/13 2129 DC 09/13 PO 09/13 2131 2329 Dose Instructions: (1)Lorazepam: See admin criteria Last 24 Hrs of Lab/David Results Last 24 Hrs of Labs/Mics: Laboratory Tests 09/13/17 1628: Anion Gap 8, Estimated GFR > 60, BUN/Creatinine Ratio 15.7 Lines/Diet/Fluids Lines: peripheral lines Assessment/Plan Assessment: Patient is a 36 YO M with PMH significant of Alcohol abuse, with h/o multiple detox attempts, alcohol related grand mal seizure once last yr and history of suicidal ideation. His last admission was in june 2017 presented to [facility] requesting detoxification. He was discharged recently to [facility] but didnt attend due to inconvinient hours. Attending Alcohol annonymous and remained sober. Started drinking around 15 days ago with whiskey around 1L reportedly per day. Today he drank on 2-3 bottles and requested detox after calling his sister. Vitals at admissions did show tachycardia. Labs are unremarkable. CIWA scores around 10 for anxiety, tremors, nausea. Admit to general medicine floor Alcohol detox Overnight CIWA scores low 0-4. Taper ativan to 1 mg every 6 for now. Continue folate/thiamine/multivitamin. Psych and social work consult. smoking cessation nicotin patch Rt Knee pain Likely musculo-skeltal, no effusion or abnormality noticed on exam Apply cold compress as needed; tylenol if pain persists Discharge follow up Family requested 1. [facility] [phone]. 2. [facility] (NO ADDITIONAL DETAILS ABOUT THIS FACILITY) DVT prophylaxis SC lovenox code status Full code Problem List: 1. Alcohol dependence with withdrawal Pain Ratin Pain Location: na Pain Goal: Remain pain free Pain Plan: current plan Tomorrow's Labs & Rationales: BEP, cbc, mag Pablito NAIDU,[facility] 09/14/17 1232: Attending MD Review Statement Attending Statement Attending MD Statement: examined this patient, discuss w/resident/PA/MACHINE ACCOUNTANT, agreed w/resident/PA/MACHINE ACCOUNTANT, reviewed EMR data (avail), discussed with nursing, amended to note Attending Assessment/Plan: Patient seen and examined, overall doing much better. Less shaky. CIWA scores are running low. Denies any complaints. Vital signs are stable. Well taper the Ativan to 1 mg every 6 hours scheduled and continue the when necessary Ativan. Continue megavitamin folate and thiamine. Continue the rest of the management. Social work to see the patient tomorrow.
[2017-09-14 14:50] VITALS: BP 140/80
[2017-09-14 23:20] VITALS: BP 118/70
[2017-09-15 06:20] VITALS: BP 118/70
--- NOTE | 2017-09-15 07:35 | PN- Housestaff ---
Saw NAIDU,Charu 09/15/17 0735: Subjective Follow-up For: alcohol detox Subjective: patient seen today. no complaints on interview. patient had ciwa overnight of 0 -2 but during the day today had ciwa of 13 for anxiety 7, headache 3, sweating 3. On interview the next hour however, no complaints and CIWA at 0 again. Review of Systems Constitutional: Reports: no symptoms. Cardiovascular: Reports: no symptoms. Gastrointestinal: Reports: no symptoms. Genitourinary: Reports: no symptoms. Neurological/Psychological: Denies: anxiety, confusion, headache, tremors. Objective Last 24 Hrs of Vital Signs/I&O Vital Signs Date Time Temp Pulse Resp B/P B/P Pulse O2 O2 Flow FiO2 Mean Ox Delivery Rate 09/15 1352 98.7 84 20 122/90 97 Room Air 09/15 1003 97.0 95 20 118/80 97 Room Air 09/15 0620 98.4 67 18 118/70 96 Room Air 09/14 2320 98.2 77 19 118/70 98 Room Air 09/14 1450 98.1 90 18 140/80 96 Intake & Output 09/15 1600 09/15 0800 09/15 0000 Intake Total 480 100 100 Output Total Balance 480 100 100 Intake, Oral 480 100 100 Physical Exam General Appearance: Alert, Oriented X3, Cooperative, No Acute Distress Cardiovascular: Regular Rate, Normal S1, Normal S2, No Murmurs Lungs: Clear to Auscultation, Normal Air Movement Abdomen: Normal Bowel Sounds, Soft, No Tenderness Neurological: Normal Speech Assessment/Plan Assessment: Patient is a 36 YO M with PMH significant of Alcohol abuse, with h/o multiple detox attempts, alcohol related grand mal seizure once last yr and history of suicidal ideation. His last admission was in june 2017 presented to [facility]ification. He was discharged to [facility] but didnt attend due to inconvinient hours with his work schedule. Attended Alcoholics Anonymous and remained sober until 15 days ago when he started drinking whiskey around 1L reportedly per day. The day of admission he reportedly drank 2-3 bottles and requested detox after calling his sister. Vitals at admissions did show tachycardia. Labs are unremarkable. CIWA scores around 10 for anxiety, tremors, nausea. Admit to general medicine floor Alcohol detox Overnight CIWA scores low 0-2 Taper ativan to 1 mg every 8 for now. Continue folate/thiamine/multivitamin. Mg was low on admission, will repeat Mg level tomorrow Psych will defer workup and treatment as patient mainly needs the help of social work in finding a detox program. As per social services manager, both rehabilitation programs chosen by patient are not covered by his insurance so we will strive to find an option that works with his insurance. smoking cessation nicotine patch 21 mg Rt Knee pain Likely musculo-skeletal, no effusion or abnormality noticed on exam Apply cold compress as needed; tylenol if pain persists Discharge follow up Family requested 1. [facility] [phone]. 2. [facility] (NO ADDITIONAL DETAILS ABOUT THIS FACILITY) HOWEVER THESE ARE NOT COVERED BY HIS INSURANCE. SOCIAL WORK TO HELP. DVT prophylaxis SC lovenox code status Full code Problem List: 1. Alcohol dependence with withdrawal Pain Ratin Pain Location: NA Pain Goal: Remain pain free Pain Plan: NA Tomorrow's Labs & Rationales: BEP MG Librado Charles 09/15/17 1217: Attending MD Review Statement Attending Statement Attending MD Statement: examined this patient, discuss w/resident/PA/BEAD PICKER, agreed w/resident/PA/BEAD PICKER, discussed with family, reviewed EMR data (avail), discussed with nursing, discussed with case mgmt, reviewed images, amended to note Attending Assessment/Plan: Patient seen and examined, overall doing much better. CIWA scores are running low. Denies any complaints. Vital signs are stable. Well taper the Ativan and continue the when necessary Ativan. Continue folate and thiamine. Continue the rest of the management. Social work f/u.
[2017-09-15 10:03] VITALS: BP 118/80
[2017-09-15 13:52] VITALS: BP 122/90
--- NOTE | 2017-09-15 15:18 | Incdntl Nt Psy ---
Incidental Note Notation: After a discussion with Dr. Díaz, resident, we decided that the patient is doing well, and the lorazepam taper for alcohol detox is almost finished. There is no reason for a psychiatric consult, at this time. A brief courtesy visit to the patient reveals that he is alert, oriented, denies AH.VH.TH and presents no garo delusions, and denies suicidal or homicidal behavior. He is not delirious, nor psychotic. His work schedule will not allow him to attend [facility], but he feels he will be safe to attend , where he has a sponsor.
[2017-09-15 22:27] VITALS: BP 126/70
[2017-09-16] VITALS: BP 126/70
[2017-09-16 06:00] VITALS: BP 116/60
--- NOTE | 2017-09-16 07:48 | PN- Housestaff ---
Alana Hightower MD,[facility] 09/16/17 0748: Subjective Follow-up For: Alcohol detox Subjective: Patient visited today, was lying in bed comfortably in no acute distress, was alert and oriented. CIWA 0-13, max 13 at 2am. recieved 6mg Ativan (2mg IV) in the last 24 hours. No fever or chills, no shortness of breathing, no chest pain, no other events. Patient was requesting to walk in the redd way and asking to be discharged. Review of Systems Constitutional: Reports: see HPI. Objective Last 24 Hrs of Vital Signs/I&O Vital Signs Date Time Temp Pulse Resp B/P B/P Pulse O2 O2 Flow FiO2 Mean Ox Delivery Rate 09/16 0600 97.5 58 18 116/60 94 Room Air 09/16 0000 98.0 76 18 126/70 09/15 2227 98.0 76 18 126/70 96 09/15 1352 98.7 84 20 122/90 97 Room Air 09/15 1003 97.0 95 20 118/80 97 Room Air Intake & Output 09/16 1600 09/16 0800 09/16 0000 Intake Total 300 Output Total Balance 300 Intake, Oral 300 Physical Exam General Appearance: Alert, Oriented X3, Cooperative, No Acute Distress Skin: No Significant Lesion HEENT: Atraumatic, EOMI, Mucous Membr. moist/pink, No tremor Cardiovascular: Regular Rate, Normal S1, Normal S2 Lungs: Clear to Auscultation Abdomen: Soft, No Tenderness Neurological: Normal Speech, Strength at 5/5 X4 Ext, Cranial Nerves 3-12 NL Current Medications: Current Medications Sig/Tea Start time Last Medication Dose Route Stop Time Status Admin Folic Acid 1 MG DAILY 09/13 1000 AC 09/15 PO 09 Lorazepam 1 MG Q12 09/16 1000 DC PO Lorazepam 1 MG Q8 09/16 0821 AC PO Lorazepam 1 MG Q8 09/15 1400 DC 09/16 PO 0546 Lorazepam 1 MG Q6H 09/14 1200 DC 09/15 PO 0552 Lorazepam See Dose Q1P PRN 09/12 2100 AC 09/16 Insts (1) IV 0149 Multivitamins 1 TAB DAILY 09/12 2105 AC 09/15 PO 09 Nicotine 14 MG DAILY 09/13 1000 AC 09/15 TOP 09 Thiamine HCl 100 MG DAILY 09/13 1000 AC 09/15 PO 0905 Trazodone HCl 50 MG QPM PRN 09/14 2215 09/16 PO 0159 Dose Instructions: (1)Lorazepam: See admin criteria Last 24 Hrs of Lab/David Results Last 24 Hrs of Labs/Mics: Laboratory Tests 09/16/17 0718: Sodium Pending, Potassium Pending, Chloride Pending, Carbon Dioxide Pending, Anion Gap Pending, BUN Pending, Creatinine Pending, BUN/Creatinine Ratio Pending , Magnesium Pending Assessment/Plan Assessment: Patient is a 36 YO M with PMH significant of Alcohol abuse, with h/o multiple detox attempts, alcohol related grand mal seizure once last yr and history of suicidal ideation. His last admission was in june 2017 presented to [facility] detoxification. He was discharged to [facility] but didnt attend due to inconvinient hours with his work schedule. Attended Alcoholics Anonymous and remained sober until 15 days ago when he started drinking whiskey around 1L reportedly per day. The day of admission he reportedly drank 2-3 bottles and requested detox after calling his sister. Vitals at admissions did show tachycardia. Labs are unremarkable. CIWA scores around 10 for anxiety, tremors, nausea. Admit to general medicine floor Alcohol detox Psych will defer workup and treatment as patient mainly needs the help of social work in finding a detox program. As per social worker health services, both rehabilitation programs chosen by patient are not covered by his insurance so we will strive to find an option that works with his insurance. Overnight CIWA scores low 0-13 - Taper ativan to 1 mg every 12 for now. - Continue folate/thiamine/multivitamin. - continue home medication of trazadone Smoking cessation nicotine patch 14 mg Rt Knee pain Likely musculo-skeletal, no effusion or abnormality noticed on exam Apply cold compress as needed; tylenol if pain persists Discharge follow up Family requested 1. [facility] [phone]. 2. [facility] (NO ADDITIONAL DETAILS ABOUT THIS FACILITY) HOWEVER THESE ARE NOT COVERED BY HIS INSURANCE. SOCIAL WORK TO HELP. DVT prophylaxis SC lovenox code status Full code Problem List: 1. Alcohol dependence with withdrawal Pain Ratin Pain Location: [place] current plan Pain Goal: Pain 4 or less Pain Plan: NA Tomorrow's Labs & Rationales: None Librado Charles 09/16/17 1336: Attending MD Review Statement Attending Statement Attending MD Statement: examined this patient, discuss w/resident/PA/WELL SERVICE FLOOR WORKER, agreed w/resident/PA/WELL SERVICE FLOOR WORKER, discussed with family, reviewed EMR data (avail), discussed with nursing, discussed with case mgmt, reviewed images, amended to note Attending Assessment/Plan: Patient seen and examined, sleeping cmfortably. CIWA scores 10-12. Denies any complaints. Vital signs are stable. Taper the Ativan and continue the when necessary Ativan. Continue folate and thiamine. Continue the rest of the management. Social work f/u.
[2017-09-16 11:25] VITALS: BP 112/80
[2017-09-16 17:28] VITALS: BP 120/68
[2017-09-16 22:01] VITALS: BP 118/50
[2017-09-17] VITALS (10 sets, daily range): BP systolic 106–128; BP diastolic 50–70
--- NOTE | 2017-09-17 08:22 | PN- Housestaff ---
Cayden NAIDU,[facility] 09/17/17 0822: Subjective Follow-up For: etoh detox Subjective: No acute events overnight. Pt states he feels he will be ready to go home tomorrow. Trying to get a ride from his friend. Review of Systems Constitutional: Reports: no symptoms. Cardiovascular: Reports: no symptoms. Respiratory: Reports: no symptoms. Gastrointestinal: Reports: no symptoms. Genitourinary: Reports: no symptoms. Musculoskeletal: Reports: no symptoms. Skin: Reports: no symptoms, see HPI, cysts, change in skin color, change in hair/nails , dryness, erythema, jaundice, lesions, lymphangitis, lumps, moles, rash. Objective Last 24 Hrs of Vital Signs/I&O Vital Signs Date Time Temp Pulse Resp B/P B/P Pulse O2 O2 Flow FiO2 Mean Ox Delivery Rate 09/17 2200 98.3 64 16 128/70 98 Room Air 09/17 1813 98.2 66 18 108/66 98 Room Air 09/17 1408 99.2 70 18 124/70 96 09/17 1026 98.2 67 18 120/70 96 09/17 0605 97.7 60 20 106/60 97 Room Air 09/17 0600 97.7 60 20 106/60 09/17 0400 97.8 78 20 118/50 09/17 0200 97.6 67 20 120/70 09/17 0149 97.6 67 20 120/70 96 Room Air 09/17 0000 97.8 78 20 118/50 Intake & Output 09/17 1600 09/17 0800 09/17 0000 Intake Total 1100 480 480 Output Total Balance 1100 480 480 Intake, Oral 1100 480 480 Patient 160 lb Weight Physical Exam General Appearance: Alert, Oriented X3, Cooperative, No Acute Distress Cardiovascular: Regular Rate, Normal S1, Normal S2 Lungs: Clear to Auscultation, Normal Air Movement Abdomen: Normal Bowel Sounds, Soft, No Tenderness Extremities: 2+ radial pulses Last 24 Hrs of Lab/David Results Last 24 Hrs of Labs/Mics: Laboratory Tests 09/17/17 1516: CBC w Diff MAN DIFF ORDERED, RBC 4.68 L, MCV 89.7, MCH 30.6, MCHC 34.1, RDW 12.8, MPV 8.2, Segmented Neutrophils 74, Lymphocytes 20 L, Monocytes 4, Eosinophils 2, Platelet Estimate ADEQUATE, Normochromic RBCs VERIFIED, Poikilocytosis FEW, Stomatocytes FEW Assessment/Plan Assessment: Patient is a 36 YO M with PMH significant of Alcohol abuse, with h/o multiple detox attempts, alcohol related grand mal seizure once last yr and history of suicidal ideation. His last admission was in june 2017 presented to [facility] requesting detoxification. He was discharged to [facility] but didnt attend due to inconvinient hours with his work schedule. Attended Alcoholics Anonymous and remained sober until 15 days ago when he started drinking whiskey around 1L reportedly per day. The day of admission he reportedly drank 2-3 bottles and requested detox after calling his sister. Vitals at admissions did show tachycardia. Labs are unremarkable. CIWA scores around 10 for anxiety, tremors, nausea. Admit to general medicine floor Alcohol detox Psych will defer workup and treatment as patient mainly needs the help of social work in finding a detox program. As per social worker masters, both rehabilitation programs chosen by patient are not covered by his insurance so we will strive to find an option that works with his insurance. Overnight CIWA scores low 0-8 - Taper ativan to 0.5 mg every 12 for now. - plan for discharge tomorrow - Continue folate/thiamine/multivitamin. - continue home medication of trazadone Smoking cessation nicotine patch 14 mg Rt Knee pain Likely musculo-skeletal, no effusion or abnormality noticed on exam Apply cold compress as needed; tylenol if pain persists Discharge follow up Family requested 1. [facility] [phone]. 2. [facility] (NO ADDITIONAL DETAILS ABOUT THIS FACILITY) HOWEVER THESE ARE NOT COVERED BY HIS INSURANCE. SOCIAL WORK TO HELP. Patient has agreed to go to after. Does not want rehab. DVT prophylaxis SC lovenox code status Full code Problem List: 1. Alcohol dependence with withdrawal Pain Ratin Pain Location: none Pain Goal: Pain 4 or less Pain Plan: pain pathway Tomorrow's Labs & Rationales: Librado Cote 09/17/17 1217: Attending MD Review Statement Attending Statement Attending MD Statement: examined this patient, discuss w/resident/PA/COSMETIC SALES ASSISTANT, agreed w/resident/PA/COSMETIC SALES ASSISTANT, discussed with family, reviewed EMR data (avail), discussed with nursing, discussed with case mgmt, reviewed images, amended to note Attending Assessment/Plan: Patient seen and examined, sleeping cmfortably. CIWA scores low. Denies any complaints. Vital signs are stable. Taper the Ativan and continue the when necessary Ativan. Continue folate and thiamine. Continue the rest of the management. Social work f/u. Anticipate dc tomorrow.
[2017-09-17 16:20] LABS: MEAN CORPUSCULAR HGB 30.6 PG (27.0-31.0); MEAN CORPUSCULAR HGB CONC 34.1 G/DL (33.0-37.0); MEAN CORPUSCULAR VOLUME 89.7 FL (80.0-94.0); MEAN PLATELET VOLUME 8.2 FL (7.4-10.4); PLATELET COUNT 218 /CUMM (130-400); RBC DISTRIBUTION WIDTH 12.8 % (11.5-14.5); RED BLOOD CELL CT 4.68 /CUMM (4.70-6.10)
[2017-09-17 16:24] LABS: HEMATOCRIT 41.9 % (42-52); WHITE BLOOD CELL COUNT 7.4 /CUMM (4.8-10.8)
[2017-09-18 06:48] VITALS: BP 114/64
[2017-09-18 08:21] LABS: ABSOLUTE BASOPHIL COUNT 0 /CUMM (0.0-0.2); ABSOLUTE EOSINOPHIL COUNT 0.3 /CUMM (0.0-0.7); ABSOLUTE GRANULOCYTE CT 3.6 /CUMM (1.4-6.5); ABSOLUTE LYMPH COUNT 1.9 /CUMM (1.2-3.4); ABSOLUTE MONOCYTE COUNT 0.4 /CUMM (0.10-0.60); BASOPHIL % 0.6 % (0.0-2.0); EOSINOPHIL % 4.7 % (0-5); GRANULOCYTE % 57.9 % (42.2-75.2); MEAN CORPUSCULAR HGB 30.3 PG (27.0-31.0); MEAN CORPUSCULAR HGB CONC 33.8 G/DL (33.0-37.0); MEAN CORPUSCULAR VOLUME 89.5 FL (80.0-94.0); MEAN PLATELET VOLUME 7.9 FL (7.4-10.4); PLATELET COUNT 217 /CUMM (130-400); RBC DISTRIBUTION WIDTH 13.2 % (11.5-14.5); RED BLOOD CELL CT 4.81 /CUMM (4.70-6.10); WHITE BLOOD CELL COUNT 6.2 /CUMM (4.8-10.8)
--- NOTE | 2017-09-18 08:44 | PN- Housestaff ---
Alana Hightower MD,[facility] 09/18/17 0844: Subjective Follow-up For: Alcohol detox Subjective: Patient visited today, was lying in bed comfortably in no acute distress, was alert and oriented. No tremor, no anxiety, ativan tapered, CIWA 0-2 overnight. 2mg Ativan over last 24 hours. No fever or chills, no shortness of breathing, no chest pain, no other events. Planned to be discharged today. Review of Systems Constitutional: Reports: see HPI. Objective Last 24 Hrs of Vital Signs/I&O Vital Signs Date Time Temp Pulse Resp B/P B/P Pulse O2 O2 Flow FiO2 Mean Ox Delivery Rate 09/18 0648 97.8 72 16 114/64 98 Room Air 09/17 2200 98.3 64 16 128/70 98 Room Air 09/17 1813 98.2 66 18 108/66 98 Room Air Intake & Output 09/18 1600 09/18 0800 09/18 0000 Intake Total 200 100 Output Total Balance 200 100 Intake, Oral 200 100 Physical Exam General Appearance: Alert, Oriented X3, Cooperative, No Acute Distress Skin: No Significant Lesion Skin Temp/Moisture Exam: Warm/Dry Sepsis Skin Exam (color): Normal for Ethnicity HEENT: Atraumatic, EOMI, Mucous Membr. moist/pink Neck: Supple, No JVD Lungs: Clear to Auscultation Abdomen: Soft, No Tenderness Neurological: Normal Speech, Strength at 5/5 X4 Ext Extremities: No Edema Current Medications: Current Medications Sig/Tea Start time Last Medication Dose Route Stop Time Status Admin Acetaminophen 325 MG ONCE ONE 09/17 2099 DC 09/17 PO 09/17 Folic Acid 1 MG DAILY 09/13 1000 DCD 09/18 PO 075 Lorazepam 0.5 MG Q12 09/17 2199 DCD 09/18 PO 09/23 2158 0758 Lorazepam See Dose Q1P PRN 09/12 2100 DCD 09/16 Insts (1) IV 2149 Multivitamins 1 TAB DAILY 09/12 2104 DCD 09/18 PO 075 Nicotine 14 MG DAILY 09/13 1000 DCD 09/15 TOP 0905 Thiamine HCl 100 MG DAILY 09/13 1000 DCD 09/18 PO 075 Trazodone HCl 50 MG QPM PRN 09/14 2214 DCD 09/17 PO 2122 Dose Instructions: (1)Lorazepam: See admin criteria Last 24 Hrs of Lab/David Results Last 24 Hrs of Labs/Mics: Laboratory Tests 09/18/17 0704: CBC w Diff NO MAN DIFF REQ, RBC 4.81, MCV 89.5, MCH 30.3, MCHC 33.8, RDW 13.2, MPV 7.9, Gran % 57.9, Lymphocytes % 30.0, Monocytes % 6.8, Eosinophils % 4.7, Basophils % 0.6, Absolute Granulocytes 3.6, Absolute Lymphocytes 1.9, Absolute Monocytes 0.4, Absolute Eosinophils 0.3, Absolute Basophils 0 09/17/17 1516: CBC w Diff MAN DIFF ORDERED, RBC 4.68 L, MCV 89.7, MCH 30.6, MCHC 34.1, RDW 12.8, MPV 8.2, Segmented Neutrophils 74, Lymphocytes 20 L, Monocytes 4, Eosinophils 2, Platelet Estimate ADEQUATE, Normochromic RBCs VERIFIED, Poikilocytosis FEW, Stomatocytes FEW Assessment/Plan Assessment: Patient is a 36 YO M with PMH significant of Alcohol abuse, with h/o multiple detox attempts, alcohol related grand mal seizure once last yr and history of suicidal ideation. His last admission was in june 2017 presented to [place] requesting detoxification. He was discharged to [facility] but didnt attend due to inconvinient hours with his work schedule. Attended Alcoholics Anonymous and remained sober until 15 days ago when he started drinking whiskey around 1L reportedly per day. The day of admission he reportedly drank 2-3 bottles and requested detox after calling his sister. Vitals at admissions did show tachycardia. Labs are unremarkable. CIWA scores around 10 for anxiety, tremors, nausea. Admit to general medicine floor Alcohol detox Patient admitted and was placed on CIWA protocol as well as ativan standing dose. Ativan was then tapered based on CIWA scores. Folate/thiamine/multivitamin were administered. at the day of discharge CIWA was 0-2 overnight. Patient has agreed to go to AA after. did not want rehab. Patient was discharge with recommendations to follow in outpatient with PCP after discharge. Smoking cessation nicotine patch 14 mg Rt Knee pain Likely musculo-skeletal, no effusion or abnormality noticed on exam. Pain meds were administered as needed. DVT prophylaxis SC lovenox code status Full code Problem List: 1. Alcohol abuse Pain Ratin Pain Location: None Pain Goal: Pain 4 or less Pain Plan: Continue current plan Tomorrow's Labs & Rationales: NA Discharge Plan Discharge Disposition: home Stable for Discharge? Yes Anticipated Discharge (Day): today Librado Charles 09/18/17 1108: Attending MD Review Statement Attending Statement Attending MD Statement: examined this patient, discuss w/resident/PA/HOPS FARMWORKER, agreed w/resident/PA/HOPS FARMWORKER, discussed with family, reviewed EMR data (avail), discussed with nursing, discussed with case mgmt, reviewed images, amended to note Attending Assessment/Plan: Patient seen and examined, sleeping cmfortably. CIWA scores low. Denies any complaints. Vital signs are stable. Continue folate and thiamine. Continue the rest of the management. Follow AA as outpatient. Anticipate dc today.
[2017-09-18] MEDS ORDERED: ONE DAILY MULT1 EAC2 PO (10:04)
--- NOTE | 2017-09-18 10:10 | Patient Discharge Instructions ---
Discharge Instructions General Discharge Information You were seen/treated for: Alcohol detox Watch for these problems: Severe dizziness, agitation, shortness of breathing, chest pain, tremor, seizure or worsening of any other symptoms Special Instructions: Please follow with your PCP within one week of discharge regarding your recent admission and continuation of your medication Diet Continue normal diet: Yes Activity Full Activity/No Limits: No Activity Self Limited: Yes Acute Coronary Syndrome Inclusion Criteria At DC or during hospital stay patient has or had the following: ACS DIAGNOSIS No Discharge Core Measures Meds if any: Prescribed or Continued at Discharge Meds if any: NOT Prescribed or Continued at Discharge Congestive Heart Failure Inclusion Criteria At DC or during hospital stay patient has or had the following: CHF DIAGNOSIS No Discharge Core Measures Meds if any: Prescribed or Continued at Discharge Meds if any: NOT Prescribed or Continued at Discharge Cerebrovascular accident Inclusion Criteria At DC or during hospital stay patient has or had the following: CVA/TIA Diagnosis No Discharge Core Measures Meds if any: Prescribed or Continued at Discharge Meds if any: NOT Prescribed or Continued at Discharge Venous thromboembolism Inclusion Criteria VTE Diagnosis No VTE Type NONE VTE Confirmed by (Test) NONE Discharge Core Measures - Per Current guidelines, there needs to be overlap - treatment for the first 5 days of Warfarin therapy. - If discharged on Warfarin prior to 5 days of - overlap therapy, the patient will need to be - assessed for post discharge needs including - *Post discharge parental anticoagulation - *Warfarin and/or parental anticoagulation education - *Follow up date to check INR post discharge At least 5 days overlap therapy as Inpatient No Meds if any: Prescribed or Continued at Discharge Note: Overlap Therapy is Warfarin and Anticoagulant Meds if any: NOT Prescribed or Continued at Discharge
--- NOTE | 2017-09-18 10:11 | Discharge Summary ---
Visit Information Visit Dates Admission Date: 09/12/17 Discharge Date: 09/18/17 Hospital Course Course Attending Physician: Librado Charles MD Primary Care Physician: Dr Ortega Soriano Hospital Course: Patient was a 36 YO M presented to [facility] requesting detoxification PMH: Alcohol abuse, with h/o multiple detox attempts, alcohol related grand mal seizure once last yr and history of suicidal ideation during his last admission was in june 2017 . Last time he was discharged to [facility] but didnt attend due to inconvinient hours with his work schedule. Attended Alcoholics Anonymous and remained sober until 15 days ago when he started drinking whiskey around 1L reportedly per day. The day of admission he reportedly drank 2-3 bottles and requested detox after calling his sister. Vitals at admissions did show tachycardia. Labs are unremarkable. CIWA scores around 10 for anxiety, tremors, nausea. Admit to general medicine floor for management of following conditions: Alcohol detox Patient was placed on CIWA protocol as well as ativan standing dose. Ativan was then tapered based on CIWA scores. Folate/thiamine/multivitamin were administered. With improvement of condition patient was planned to be discharged. At the day of discharge CIWA was 0-2 overnight. Patient has agreed to go to AA after and did not want rehab. Patient was discharge with recommendations to follow in outpatient with PCP after discharge. Smoking cessation nicotine patch while in hospital, cessation conselling was done. Rt Knee pain Likely musculo-skeletal, no effusion or abnormality noticed on exam. Pain meds were administered as needed. DVT prophylaxis SC lovenox code status Full code Allergies: Coded Allergies: NO KNOWN ALLERGIES (12/12/13) Disposition Summary Disposition Principal Diagnosis: Alcohol detox Additional Diagnosis: None Discharge Disposition: home or self care Discharge Instructions General Discharge Information Code Status: Full Code Patient's Diet: Regular Patient's Activity: Self limited Follow-Up Instructions/Appts: Please follow with your PCP within one week of discharge regarding your recent admission and continuation of your medication. Medications at Discharge Discharge Medications: Stop taking the following medications: Dextroamphetamine/Amphetamine (Dextroamp-Amphet ER 10 MG Cap) 10 MG CAP.ER.24H ORAL Every Morning as needed for ADD/ADHD Qty = 30 Gabapentin (Gabapentin) (Unknown Strength) CAPSULE ORAL As Directed Continue taking these medications: Naltrexone HCl (Naltrexone HCl) 50 MG TABLET 1 Tablet ORAL DAILY Qty = 30 Comments: NOT GIVEN WHILE IN HOSPITAL Trazodone HCl (Trazodone HCl) 50 MG TABLET 1 Tablet ORAL Every night as needed for SLEEP Qty = 30 Comments: Last Taken: 09/17/17 Time: 9:00 pm Thiamine HCl (Vitamin B-1) 100 MG TABLET 1 Tablet ORAL DAILY Qty = 30 Comments: Last Taken: 09/18/17 Time: 8:00 am Start taking the following new medications: Multivitamin (One Daily Multivitamin) 1 EACH TABLET 1 Tablet ORAL DAILY Qty = 60 No Refills Comments: Last Taken: 09/18/17 Time: 8:00 AM Copies To: Bo NAIDU,Elias Kurtz Attending MD Review Statement Documenting Attending: Librado Charles MD Other Findings: Patient seen and examined, sleeping cmfortably. CIWA scores low. Denies any complaints. Vital signs are stable. Continue folate and thiamine. Continue the rest of the management. Follow AA as outpatient. Anticipate dc today. Follow up outpatient PCP in few days of discharge.
== END 2017-09-18 10:30 | DRG 775 ==
LOC: ERH 11:51 → ERHI 20:10 → 2NA 20:10 → ENRESERV 22:20 → 2NA 23:44 → ENPENDDIS 09-18 10:17 → 2NA 09-18 10:30
PROVIDERS: Emergency Medicine
DX: F10.239 Alcohol dependence with withdrawal, unspecified (principal); Y90.8 Blood alcohol level of 240 mg/100 ml or more; F17.200 Nicotine dependence, unspecified, uncomplicated
CPT/HCPCS: 2NASP; 36415; 80307; 81001; 82436; 93005; 93010; 96361; 96374; G0480; J3490; Q2036